=== PATIENT | male | born 1965 | race Caucasian/White ===

== ENCOUNTER 2021-04-19 18:48 | Emergency (ER) | payer BC, MEDICAID ==
[~2021-04-19] VITALS: Ht 177.8 cm; Wt 73.6 kg
--- NOTE | 2021-04-19 18:51 | NUR ---
FIRST CALL, NOT IN LOBBY
--- NOTE | 2021-04-19 20:23 | NUR ---
PT TO TRIAGE, STATES HE NEVER LEFT, SITTING ON FAR END OF LOBBY. TRIAGE COMPLETED. AMBULATORY BACK IN TO LOBBY.
[2021-04-19] MEDS ORDERED: LIDOCAINE-MPF 1%, 5ML ONE (22:28)
[2021-04-19] MEDS ORDERED: LIDOCAINE 1%-EPI 1:100K, 20ML INFIL ONE (22:30)
[2021-04-19] MEDS ORDERED: HYDROcodone/APAP 5/325 TABLET PO ONE (22:30)
[2021-04-19] MEDS ORDERED: DIPH,PERTUSS(ACELL),TET VAC/PF 0.5 ML IM-VACC ONE ×2 (22:30→22:35)
[2021-04-19] MEDS ORDERED: SULFAMETH./TRIMETHOPRIM DS 800MG/160MG TABLET PO ONE (22:30)
[2021-04-19] MEDS ORDERED: HYDROcodone/APAP 5/325 TABLET ONE (22:35)
[2021-04-19] MEDS ORDERED: SULFAMETH./TRIMETHOPRIM DS 800MG/160MG TABLET ONE (22:35)
[2021-04-19 23:11] VITALS: BP 138/57
--- NOTE | 2021-04-19 23:26 | NUR ---
Patient given discharge instructions and they have confirmed that they understand the instructions. Patient ambulatory with steady gait.
== END 2021-04-19 23:27 | disposition home or self-care (01) ==
LOC: ED 23:00
DX: L03.031 Cellulitis of right toe (principal); L02.611 Cutaneous abscess of right foot
CPT/HCPCS: 10060; 90471; 90715; 99283

== ENCOUNTER 2021-04-21 03:54 | Inpatient (IN) | payer MEDICAID, OTHER ==
[~2021-04-21] VITALS: Ht 177.8 cm; Wt 75.2 kg
--- NOTE | 2021-04-21 04:07 | NUR ---
PT C/O OF LEFT FOOT PAIN, REPORTS FEELING OF STABBING AND NEEDLES. PTS FOOT APPEARS SWOLLEN AND RED. PT WAS SEEN HERE YESTERDAY FOR SAME CASE BUT STATES IT HAS GOTTEN A LOT WORSE. PT STATES HE'S TAKING ATX BACTRIM ATTACHED TO MONITORS, VSS, NADN. DOES STATE 8/10 PAIN. BED IN LOW POSITION, RAILS ENGAGED. CALL LIGHT ON LAP.
[2021-04-21] MEDS ORDERED: SODIUM CHLORIDE 0.9% 1,000ML IVBOLUS ONE (04:30)
[2021-04-21] MEDS ORDERED: VANCOMYCIN PER PHARMACY MC PRN ×2 (04:30→06:00)
[2021-04-21] MEDS ORDERED: CEFTRIAXONE 1,000 MG in DEXTROSE 5% 50 ML IVPB ONE (04:30)
[2021-04-21] MEDS ORDERED: MORPHINE SULFATE 4 MG/ML, 1ML IVPush PRN (04:30)
[2021-04-21] MEDS ORDERED: ONDANSETRON 2MG/ML, 2ML IVPush ONE (04:30)
[2021-04-21] MEDS ORDERED: FENTANYL PF 100 MCG/2ML IV ONE (05:00)
[2021-04-21] MEDS ORDERED: FENTANYL PF 100 MCG/2ML ONE (05:07)
[2021-04-21 05:12] LABS: HCT (SEDRATE) 37.5 % (39.2-51.8)
[2021-04-21 05:13] LABS: BASOPHILS % (AUTO) 0 % (0-1); EOSINOPHILS % (AUTO) 1 % (1-7); LYMPHOCYTES % (AUTO) 5 % (22-44); MEAN CORPUSCULAR HEMOGLOBIN 30.3 pg (27.5-34.5); MEAN CORPUSCULAR HGB CONC 33.9 g/dL (33.2-36.2); MEAN PLATELET VOLUME 7.7 fL (7.4-10.4); MONOCYTES % (AUTO) 10 % (2-9); NEUTROPHILS % (AUTO) 84 % (42-75); PLATELET COUNT 277 x10^3/uL (130-400); RED BLOOD COUNT 4.25 x10^6/uL (4.38-5.82)
[2021-04-21 05:15] LABS: ANION GAP 6 mmol/L (5-15); CALCIUM 8.3 mg/dL (8.5-10.1); CHLORIDE 106 mmol/L (98-107); CREATININE 0.73 mg/dL (0.7-1.3)
--- NOTE | 2021-04-21 05:31 | NUR ---
Patient is resting comfortably in bed. Bed in lowest, rails engaged, call light on lap. Vital Signs within normal limits. WCTM.
[2021-04-21] MEDS ORDERED: SULF1TAB24 PO (05:33)
[2021-04-21] MEDS ORDERED: ACETAMINOPHEN 325 MG TABLET PO PRN (06:00)
[2021-04-21] MEDS ORDERED: BACLOFEN 10 MG TABLET PO PRN (06:00)
[2021-04-21] MEDS ORDERED: ENALAPRILAT 1.25 MG/ML, 2ML IVPush PRN (06:00)
[2021-04-21] MEDS ORDERED: ZOLPIDEM 5MG TABLET PO PRN (06:00)
[2021-04-21] MEDS ORDERED: VANCOMYCIN 1,800 MG in SODIUM CHLORIDE 0.9% 250 ML IV ONE (06:00)
[2021-04-21] MEDS ORDERED: ONDANSETRON 2MG/ML, 2ML IVPush PRN (06:00)
[2021-04-21] MEDS ORDERED: GUAIFENESIN/DM 200-20MG, 10ML UDC PO PRN (06:00)
[2021-04-21] MEDS ORDERED: DOCUSATE 100 MG CAPSULE PO PRN (06:00)
--- NOTE | 2021-04-21 06:10 | NUR ---
gave report to lorenzo colon.
[2021-04-21 06:15] VITALS: BP 128/74
[2021-04-21] MEDS: morphine SULFATE 10 MG/ML, 1ML IVPush PRN ×4 (06:37→23:42)
[2021-04-21] MEDS ORDERED: PHARMACOKINETIC MONITORING MC PRN (07:00)
[2021-04-21 07:15] VITALS: BP 126/76
[2021-04-21] MEDS: ENOXAPARIN 40 MG/0.4 ML SQ SCH (10:52)
[2021-04-21] MEDS: SODIUM CHLORIDE 0.9% 1,000 ML IV SCH (12:49)
[2021-04-21 13:45] VITALS: BP 135/75
[2021-04-21] MEDS: PIPERACILLIN/TAZO 3.375 GM in DEXTROSE 5% 50 ML IVPB SCH ×3 (14:54→23:41)
[2021-04-21] MEDS: VANCOMYCIN 1,500 MG in SODIUM CHLORIDE 0.9% 250 ML IV SCH (20:38)
[2021-04-21 20:51] VITALS: BP 137/76
[2021-04-22] MEDS: SODIUM CHLORIDE 0.9% 1,000 ML IV SCH ×3 (02:00→16:08)
[2021-04-22 02:48] VITALS: BP 133/76
[2021-04-22] MEDS: morphine SULFATE 10 MG/ML, 1ML IVPush PRN ×2 (04:30→11:35)
[2021-04-22 05:16] LABS: BASOPHILS % (AUTO) 1 % (0-1); EOSINOPHILS % (AUTO) 1 % (1-7); LYMPHOCYTES % (AUTO) 14 % (22-44); MEAN CORPUSCULAR HEMOGLOBIN 30.8 pg (27.5-34.5); MEAN CORPUSCULAR HGB CONC 34.3 g/dL (33.2-36.2); MEAN PLATELET VOLUME 8.1 fL (7.4-10.4); MONOCYTES % (AUTO) 10 % (2-9); NEUTROPHILS % (AUTO) 74 % (42-75); PLATELET COUNT 276 x10^3/uL (130-400); RED BLOOD COUNT 4.23 x10^6/uL (4.38-5.82); RED CELL DISTRIBUTION WIDTH 13.6 % (9.4-14.8)
[2021-04-22 05:20] LABS: CHLORIDE 105 mmol/L (98-107)
[2021-04-22 05:30] LABS: ALANINE AMINOTRANSFERASE 18 U/L (12-78); ALBUMIN 2.6 g/dL (3.4-5.0); ALKALINE PHOSPHATASE 55 U/L (45-117); ANION GAP 7 mmol/L (5-15); BILIRUBIN,TOTAL 0.6 mg/dL (0.2-1.0); CALCIUM 8.4 mg/dL (8.5-10.1); CREATININE 0.77 mg/dL (0.7-1.3); TOTAL PROTEIN 6.2 g/dL (6.4-8.2)
[2021-04-22] MEDS: ENOXAPARIN 40 MG/0.4 ML SQ SCH (06:00)
[2021-04-22 07:14] VITALS: BP 124/78
[2021-04-22] MEDS: PIPERACILLIN/TAZO 3.375 GM in DEXTROSE 5% 50 ML IVPB SCH ×2 (07:28→16:08)
[2021-04-22] MEDS: VANCOMYCIN 1,500 MG in SODIUM CHLORIDE 0.9% 250 ML IV SCH ×2 (08:53→21:41)
[2021-04-22 13:21] VITALS: BP 117/77
[2021-04-22 19:35] VITALS: BP 121/73
[2021-04-22] MEDS: OXYcodone IR 5MG TABLET PO PRN (21:41)
[2021-04-23 00:02] VITALS: BP 114/71
[2021-04-23] MEDS: PIPERACILLIN/TAZO 3.375 GM in DEXTROSE 5% 50 ML IVPB SCH ×3 (00:24→15:44)
[2021-04-23] MEDS: ENOXAPARIN 40 MG/0.4 ML SQ SCH (05:23)
[2021-04-23] MEDS: OXYcodone IR 5MG TABLET PO PRN (05:29)
[2021-04-23 07:28] VITALS: BP 121/75
[2021-04-23] MEDS: morphine SULFATE 10 MG/ML, 1ML IVPush PRN ×2 (08:03→12:12)
[2021-04-23] MEDS: VANCOMYCIN 1,500 MG in SODIUM CHLORIDE 0.9% 250 ML IV SCH ×2 (09:54→20:45)
[2021-04-23] MEDS: SODIUM CHLORIDE 0.9% 1,000 ML IV SCH (09:55)
[2021-04-23 13:40] VITALS: BP 132/79
[2021-04-23] MEDS ORDERED: DIPHENHYDRAMINE 50 MG/ML, 1ML IVPush PRN (17:30)
[2021-04-23] MEDS ORDERED: MEPERIDINE/PF 25MG/0.5ML IVPush PRN (17:30)
[2021-04-23] MEDS ORDERED: HALOPERIDOL 5 MG/ML IV PRN (17:30)
[2021-04-23] MEDS ORDERED: hydrALAzine 20 MG/ML, 1ML IV PRN (17:30)
[2021-04-23] MEDS ORDERED: PROMETHAZINE 25 MG/ML, 1ML IVPush PRN (17:30)
[2021-04-23] MEDS ORDERED: LABETALOL 5MG/ML, 20ML IV PRN (17:30)
[2021-04-23] MEDS ORDERED: OXYcodone 5 MG/5 ML ORAL.SOL UDC PO PRN (17:30)
[2021-04-23] MEDS ORDERED: FENTANYL PF 100 MCG/2ML ONE ×2 (18:37→18:54)
[2021-04-23] MEDS ORDERED: NEOSTIGMINE 1 MG/ML, 10ML ONE (18:47)
[2021-04-23] MEDS ORDERED: ONDANSETRON 2MG/ML, 2ML ONE (18:47)
[2021-04-23] MEDS ORDERED: GLYCOPYRROLATE 0.2MG/1ML, 5ML ONE (18:47)
[2021-04-23] MEDS ORDERED: DEXAMETHASONE 4 MG/ML, 1ML ONE (18:47)
[2021-04-23] MEDS ORDERED: ROCURONIUM 10MG/ML,5ML ONE (18:47)
[2021-04-23] MEDS ORDERED: PROPOFOL 10 MG/ML, 20ML ONE (18:47)
[2021-04-23] MEDS ORDERED: SUCCINYLCHOLINE 20 MG/ML, 10ML ONE (18:47)
[2021-04-23] MEDS ORDERED: CEFAZOLIN 1,000 MG ONE (18:47)
[2021-04-23] MEDS ORDERED: OXYcodone 5 MG/5 ML ORAL.SOL UDC ONE (18:54)
[2021-04-23] MEDS ORDERED: HYDROmorphone 2 MG/ML, 1ML ONE (18:54)
[2021-04-23] MEDS: FENTANYL PF 100 MCG/2ML IV PRN ×2 (18:57→19:03)
[2021-04-23] MEDS: HYDROmorphone 1 MG/ML, 1ML INJ IVPush PRN ×3 (19:08→19:20)
[2021-04-23 19:53] VITALS: BP 114/68
[2021-04-24] MEDS: PIPERACILLIN/TAZO 3.375 GM in DEXTROSE 5% 50 ML IVPB SCH ×2 (00:15→08:02)
[2021-04-24 00:54] VITALS: BP 103/63
[2021-04-24] MEDS: VANCOMYCIN 1,500 MG in SODIUM CHLORIDE 0.9% 250 ML IV SCH ×3 (04:10→20:12)
[2021-04-24] MEDS: SODIUM CHLORIDE 0.9% 1,000 ML IV SCH (04:11)
[2021-04-24 05:02] LABS: BASOPHILS % (AUTO) 0 % (0-1); EOSINOPHILS % (AUTO) 0 % (1-7); LYMPHOCYTES % (AUTO) 6 % (22-44); MEAN CORPUSCULAR HEMOGLOBIN 30.5 pg (27.5-34.5); MEAN CORPUSCULAR HGB CONC 34.1 g/dL (33.2-36.2); MEAN PLATELET VOLUME 7.4 fL (7.4-10.4); MONOCYTES % (AUTO) 6 % (2-9); NEUTROPHILS % (AUTO) 88 % (42-75); PLATELET COUNT 414 x10^3/uL (130-400); RED CELL DISTRIBUTION WIDTH 13.8 % (9.4-14.8)
[2021-04-24 05:09] LABS: CHLORIDE 104 mmol/L (98-107)
[2021-04-24 05:23] LABS: ALANINE AMINOTRANSFERASE 17 U/L (12-78); ALBUMIN 2.3 g/dL (3.4-5.0); ALKALINE PHOSPHATASE 68 U/L (45-117); ANION GAP 8 mmol/L (5-15); BILIRUBIN,TOTAL 0.6 mg/dL (0.2-1.0); CALCIUM 8.6 mg/dL (8.5-10.1); CREATININE 0.65 mg/dL (0.7-1.3); TOTAL PROTEIN 6.9 g/dL (6.4-8.2)
[2021-04-24 06:38] VITALS: BP 114/70
[2021-04-24] MEDS: OXYcodone IR 5MG TABLET PO PRN ×3 (08:04→20:22)
[2021-04-24 12:51] VITALS: BP 127/80
[2021-04-24 19:05] VITALS: BP 117/77
[2021-04-24] MEDS: ENOXAPARIN 40 MG/0.4 ML SQ SCH (20:12)
[2021-04-25 00:03] VITALS: BP 119/72
[2021-04-25] MEDS: VANCOMYCIN 1,500 MG in SODIUM CHLORIDE 0.9% 250 ML IV SCH (04:00)
[2021-04-25 07:44] VITALS: BP 121/77
[2021-04-25] MEDS: OXYcodone IR 5MG TABLET PO PRN ×3 (07:48→20:34)
[2021-04-25] MEDS: DAPTOMYCIN 500 MG in SODIUM CHLORIDE 0.9% 100 ML IVPB SCH (11:48)
[2021-04-25 13:01] VITALS: BP 118/74
[2021-04-25 20:21] VITALS: BP 136/65
[2021-04-25] MEDS: ENOXAPARIN 40 MG/0.4 ML SQ SCH (20:35)
[2021-04-26 01:13] VITALS: BP 108/66
[2021-04-26 05:50] LABS: BASOPHILS % (AUTO) 1 % (0-1); EOSINOPHILS % (AUTO) 3 % (1-7); LYMPHOCYTES % (AUTO) 22 % (22-44); MEAN CORPUSCULAR HEMOGLOBIN 30.6 pg (27.5-34.5); MEAN CORPUSCULAR HGB CONC 34.4 g/dL (33.2-36.2); MEAN PLATELET VOLUME 7.1 fL (7.4-10.4); MONOCYTES % (AUTO) 13 % (2-9); NEUTROPHILS % (AUTO) 61 % (42-75); PLATELET COUNT 388 x10^3/uL (130-400); RED BLOOD COUNT 4.34 x10^6/uL (4.38-5.82); RED CELL DISTRIBUTION WIDTH 13.7 % (9.4-14.8)
[2021-04-26 06:01] LABS: ANION GAP 5 mmol/L (5-15); CALCIUM 8.6 mg/dL (8.5-10.1); CHLORIDE 107 mmol/L (98-107)
[2021-04-26 06:07] LABS: CREATINE KINASE, TOTAL 21 U/L (39-308); CREATININE 0.78 mg/dL (0.7-1.3)
[2021-04-26 06:52] VITALS: BP 137/83
[2021-04-26] MEDS: DAPTOMYCIN 500 MG in SODIUM CHLORIDE 0.9% 100 ML IVPB SCH (12:17)
[2021-04-26] MEDS: OXYcodone IR 5MG TABLET PO PRN ×2 (12:31→20:42)
[2021-04-26 13:27] VITALS: BP 134/88
[2021-04-26 18:33] VITALS: BP 108/69
[2021-04-26] MEDS: ENOXAPARIN 40 MG/0.4 ML SQ SCH (20:41)
[2021-04-27 01:06] VITALS: BP 106/68
[2021-04-27 07:38] VITALS: BP 119/79
[2021-04-27] MEDS: OXYcodone IR 5MG TABLET PO PRN (10:02)
[2021-04-27] MEDS ORDERED: DAPT500V6 IV (11:02)
[2021-04-27] MEDS ORDERED: SENN-204 PO (11:02)
[2021-04-27] MEDS ORDERED: OXYC5TAB98 PO (11:02)
[2021-04-27 12:45] VITALS: BP 113/71
[2021-04-27] MEDS: DAPTOMYCIN 500 MG in SODIUM CHLORIDE 0.9% 100 ML IVPB SCH (13:05)
== END 2021-04-27 15:49 | disposition home or self-care (01) | DRG 854 ==
LOC: ED 04:42 → EDIP 05:01 → 3N 06:27
PROVIDERS: ADMIT Internal Medicine; ATTEND Family Medicine
PROC: 0KBW0ZZ Excision of Left Foot Muscle, Open Approach (ICD-10-PCS; 2021-04-23)
PROC: 02HV33Z Insertion of Infusion Device into Superior Vena Cava, Percutaneous Approach (ICD-10-PCS; principal; 2021-04-24)
PROC: B5181ZA Fluoroscopy of Superior Vena Cava using Low Osmolar Contrast, Guidance (ICD-10-PCS; 2021-04-24)
PROC: B548ZZA Ultrasonography of Superior Vena Cava, Guidance (ICD-10-PCS; 2021-04-24)
DX: A41.02 Sepsis due to Methicillin resistant Staphylococcus aureus (principal); E87.1 Hypo-osmolality and hyponatremia; L03.116 Cellulitis of left lower limb; L02.612 Cutaneous abscess of left foot; M86.172 Other acute osteomyelitis, left ankle and foot; Z20.822 Contact with and (suspected) exposure to COVID-19; L03.031 Cellulitis of right toe
CPT/HCPCS: 36415; 36573; 80048; 80053; 80202; 82040; 82550; 83036; 83605; 85025; 85651; 86140; 87040; 87070; 87075; 87077; 87176; 87186; 87205; 87635; 96374; 96375; 99285; G0378; J0690; J0696; J0878; J1100; J1170; J1650; J2405; J2543; J2704; J2710; J3010; J3370; C1751; J0330; J2270; J7030; J7050

== ENCOUNTER 2021-05-09 09:22 | Outpatient (CLI) | payer MEDICAID ==
[~2021-05-09 09:22] MED LIST: DAPT500V6 IV; OXYC5TAB98 PO; SENN-204 PO; SULF1TAB24 PO
== END 2021-05-09 23:59 | disposition home or self-care (01) ==
LOC: WOUND 09:22
PROVIDERS: ATTEND Internal Medicine
DX: S91.102A Unspecified open wound of left great toe without damage to nail, initial encounter (principal); S81.802A Unspecified open wound, left lower leg, initial encounter; M86.072 Acute hematogenous osteomyelitis, left ankle and foot; L02.612 Cutaneous abscess of left foot; L03.116 Cellulitis of left lower limb; Z86.14 Personal history of Methicillin resistant Staphylococcus aureus infection; X58.XXXA Exposure to other specified factors, initial encounter; Y93.89 Activity, other specified; Y92.89 Other specified places as the place of occurrence of the external cause; Y99.8 Other external cause status
CPT/HCPCS: 97597; 99213

== ENCOUNTER 2021-05-16 08:17 | Outpatient (CLI) | payer MEDICAID | END 2021-05-16 23:59 | disposition home or self-care (01) | LOC: WOUND 08:17 | PROVIDERS: ATTEND Internal Medicine | DX: S81.802D Unspecified open wound, left lower leg, subsequent encounter (principal); M86.072 Acute hematogenous osteomyelitis, left ankle and foot; L02.612 Cutaneous abscess of left foot; L03.032 Cellulitis of left toe; B95.62 Methicillin resistant Staphylococcus aureus infection as the cause of diseases classified elsewhere; X58.XXXD Exposure to other specified factors, subsequent encounter | CPT/HCPCS: 97597 ==

== ENCOUNTER 2021-05-23 08:13 | Outpatient (CLI) | payer MEDICAID | END 2021-05-23 23:59 | disposition home or self-care (01) | LOC: WOUND 08:13 | PROVIDERS: ATTEND Internal Medicine | DX: S91.102D Unspecified open wound of left great toe without damage to nail, subsequent encounter (principal); L02.612 Cutaneous abscess of left foot; M86.072 Acute hematogenous osteomyelitis, left ankle and foot; M86.8X7 Other osteomyelitis, ankle and foot; L84 Corns and callosities; F10.10 Alcohol abuse, uncomplicated; Z20.822 Contact with and (suspected) exposure to COVID-19; Z86.14 Personal history of Methicillin resistant Staphylococcus aureus infection; X58.XXXD Exposure to other specified factors, subsequent encounter | CPT/HCPCS: 97597 ==

== ENCOUNTER → 2021-05-30 | Outpatient (CLI) | payer MEDICAID | END | disposition home or self-care (01) | LOC: WOUND 08:29 | PROVIDERS: ATTEND Internal Medicine | DX: T86.828 Other complications of skin graft (allograft) (autograft) (principal); S91.102D Unspecified open wound of left great toe without damage to nail, subsequent encounter; L02.612 Cutaneous abscess of left foot; M86.072 Acute hematogenous osteomyelitis, left ankle and foot; L84 Corns and callosities; F10.10 Alcohol abuse, uncomplicated; Z20.822 Contact with and (suspected) exposure to COVID-19; Z86.14 Personal history of Methicillin resistant Staphylococcus aureus infection; X58.XXXD Exposure to other specified factors, subsequent encounter; Y83.2 Surgical operation with anastomosis, bypass or graft as the cause of abnormal reaction of the patient, or of later complication, without mention of misadventure at the time of the procedure; Y92.238 Other place in hospital as the place of occurrence of the external cause | CPT/HCPCS: C5271; Q4166 ==

== ENCOUNTER → 2021-06-06 | Outpatient (CLI) | payer MEDICAID | END | disposition home or self-care (01) | LOC: WOUND 07:42 | PROVIDERS: ATTEND Internal Medicine | DX: S91.102D Unspecified open wound of left great toe without damage to nail, subsequent encounter (principal); L02.612 Cutaneous abscess of left foot; M86.072 Acute hematogenous osteomyelitis, left ankle and foot; L84 Corns and callosities; F10.10 Alcohol abuse, uncomplicated; Z20.822 Contact with and (suspected) exposure to COVID-19; Z86.14 Personal history of Methicillin resistant Staphylococcus aureus infection; W22.8XXD Striking against or struck by other objects, subsequent encounter | CPT/HCPCS: 97597 ==

== ENCOUNTER 2021-06-20 08:31 | Outpatient (CLI) | payer MEDICAID | END 2021-06-20 23:59 | disposition home or self-care (01) | LOC: WOUND 08:31 | PROVIDERS: ATTEND Internal Medicine | DX: S91.102D Unspecified open wound of left great toe without damage to nail, subsequent encounter (principal); L02.612 Cutaneous abscess of left foot; M86.072 Acute hematogenous osteomyelitis, left ankle and foot; L84 Corns and callosities; F10.10 Alcohol abuse, uncomplicated; Z20.822 Contact with and (suspected) exposure to COVID-19; Z86.14 Personal history of Methicillin resistant Staphylococcus aureus infection; W22.8XXD Striking against or struck by other objects, subsequent encounter | CPT/HCPCS: 97597 ==

== ENCOUNTER 2021-06-27 08:21 | Outpatient (CLI) | payer MEDICAID | END 2021-06-27 23:59 | disposition home or self-care (01) | LOC: WOUND 08:21 | PROVIDERS: ATTEND Internal Medicine | DX: S91.102D Unspecified open wound of left great toe without damage to nail, subsequent encounter (principal); S81.802D Unspecified open wound, left lower leg, subsequent encounter; L02.612 Cutaneous abscess of left foot; M86.072 Acute hematogenous osteomyelitis, left ankle and foot; L84 Corns and callosities; F10.10 Alcohol abuse, uncomplicated; Z20.822 Contact with and (suspected) exposure to COVID-19; Z86.14 Personal history of Methicillin resistant Staphylococcus aureus infection; W22.8XXD Striking against or struck by other objects, subsequent encounter | CPT/HCPCS: 97597 ==